=== PATIENT | male | born 1970 | race Caucasian/White ===

== ENCOUNTER 2018-09-04 17:33 | Emergency (ER) | payer MEDICAID ==
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
[2018-09-04 18:30] VITALS: BP 136/86
--- NOTE | 2018-09-04 19:16 | CRLCT ---
INDICATION: Dizziness, forgetful and palpitations. TECHNIQUE: CT head without contrast. COMPARISON: None. FINDINGS: CSF spaces: Within normal limits for age. Brain parenchyma: The gilbert-white differentiation is normal. No sign of mass, hemorrhage, or midline shift. Skull base and calvarium: The visualized paranasal sinuses and mastoid air cells demonstrate no acute or significant findings. The visualized orbits are grossly unremarkable. No skull fractures. IMPRESSION: Unremarkable noncontrast head CT. Please note that all CT scans at this facility use dose modulation, iterative reconstruction, and/or weight-based dosing when appropriate to reduce radiation dose to as low as reasonably achievable. Dictated by Sebastien Abdul MD @ Sep 04 2018 7:13PM Signed by Dr. Sebastien Abdul @ Sep 04 2018 7:15PM
--- NOTE | 2018-09-04 19:24 | CRLCR ---
Indication: Dyspnea Technique: Chest 2 views Comparison: None Findings: Cardiovascular and mediastinum: Heart size and vasculature are normal in caliber and appearance. Lungs and pleural spaces: No pleural effusion or pneumothorax. No focal consolidation. Mild bilateral bronchial wall thickening. Bones and soft tissues: No significant findings. Impression: Mild bilateral bronchial wall thickening which can be seen in bronchitis or reactive airways disease. Dictated by Sebastien Abdul MD @ Sep 04 2018 7:15PM Signed by Dr. Sebastien Abdul @ Sep 04 2018 7:23PM
== END 2018-09-04 19:40 | disposition home or self-care (01) ==
LOC: JP.ED 17:33
DX: F43.9 Reaction to severe stress, unspecified (principal); I10 Essential (primary) hypertension; E66.9 Obesity, unspecified; F17.210 Nicotine dependence, cigarettes, uncomplicated; Z98.890 Other specified postprocedural states; Z88.8 Allergy status to other drugs, medicaments and biological substances
CPT/HCPCS: 36415; 70450; 71046; 80053; 84443; 84484; 85025; 93005; 99284-25

== ENCOUNTER 2019-12-29 10:00 | Emergency (ER) | payer MEDICAID, OTHER ==
[2019-12-29 11:04] VITALS: BP 139/85; PULSE 82
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
[2019-12-29] MEDS ORDERED: cefTRIAXone 1 GM, Lidocaine 1% 2.1 ML IM ONE ×2 (13:31)
[2020-01-02 09:12] LABS: CHLAMYDIA TRACHOMATIS, NAA Negative (Negative); NEISSERIA GONORRHOEAE, NAA Negative (Negative)
== END 2019-12-29 13:57 | disposition home or self-care (01) ==
LOC: JP.ED 10:00
DX: R36.9 Urethral discharge, unspecified (principal); I10 Essential (primary) hypertension; E66.9 Obesity, unspecified; F17.210 Nicotine dependence, cigarettes, uncomplicated; Z68.32 Body mass index [BMI] 32.0-32.9, adult; Z88.8 Allergy status to other drugs, medicaments and biological substances
CPT/HCPCS: 87491; 87591; 96372; 99283; J0696; J2001

== ENCOUNTER 2020-05-11 13:19 | Emergency (ER) | payer MEDICAID ==
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
[2020-05-11 14:13] VITALS: BP 142/94; PULSE 105
== END 2020-05-11 14:01 | disposition home or self-care (01) ==
LOC: JP.ED 13:19
DX: R50.9 Fever, unspecified (principal); I10 Essential (primary) hypertension; E66.9 Obesity, unspecified; F17.210 Nicotine dependence, cigarettes, uncomplicated; Z68.33 Body mass index [BMI] 33.0-33.9, adult; Z20.828 Contact with and (suspected) exposure to other viral communicable diseases; Z88.8 Allergy status to other drugs, medicaments and biological substances
CPT/HCPCS: 99283; U0002

== ENCOUNTER 2022-02-13 11:05 | Emergency (ER) | payer MEDICAID ==
[2022-02-13 11:24] VITALS: BP 129/85; PULSE 74
[2022-02-13] MEDS ORDERED: Alum Hydrox/Mag Hydrox/Simeth 15 ML, Lidocaine 2% 15 ML PO ONE ×2 (11:28)
[2022-02-13] MEDS ORDERED: Famotidine 20 MG/2 ML SDV IVPUSH ONE (11:28)
[2022-02-13] MEDS ORDERED: Aspirin 81 MG Tab.Chew PO ONE (11:28)
[2022-02-13 11:55] LABS: ESTIMATED GFR 81 mL/min (>60); TROPONIN I HIGH SENSITIVITY 4.7 pg/mL (<=60.3)
[2022-02-13] MEDS ORDERED: Sucralfate Suspension 1 GM/10 ML Cup PO ONE (12:39)
== END 2022-02-13 15:17 | disposition home or self-care (01) ==
LOC: JP.ED 11:05
DX: R07.89 Other chest pain (principal); K21.9 Gastro-esophageal reflux disease without esophagitis; R06.02 Shortness of breath; E78.00 Pure hypercholesterolemia, unspecified; I10 Essential (primary) hypertension; E66.9 Obesity, unspecified; Z68.32 Body mass index [BMI] 32.0-32.9, adult; Z88.5 Allergy status to narcotic agent; Z20.822 Contact with and (suspected) exposure to COVID-19
CPT/HCPCS: 36415; 71045; 80053; 81001; 82150; 83690; 84443; 84484; 85025; 85379; 87635; 93005; 96374; 99285; A9270; J3490; U0002

== ENCOUNTER 2024-09-27 11:39 | Emergency (ER) | payer MEDICAID ==
[2024-09-27 11:56] LABS: BASOPHILS ABSOLUTE AUTO 0.06 K/uL (0.00-0.10); BASOPHILS PERCENT AUTO 0.6 % (0.1-1.3); EOSINOPHILS ABSOLUTE AUTO 0.21 K/uL (0.00-0.40); EOSINOPHILS PERCENT AUTO 2.1 % (0.0-5.4); HEMATOCRIT 49.8 % (38.4-49.7); HEMOGLOBIN 17.6 g/dL (12.9-16.9); IMMATURE GRAN ABSOLUTE AUTO 0.04 K/uL (0.00-0.23); IMMATURE GRAN PERCENT AUTO 0.4 % (0.0-0.7); LYMPHOCYTES ABSOLUTE AUTO 2.28 K/uL (0.8-3.3); LYMPHOCYTES PERCENT AUTO 22.5 % (11.4-47.7); MEAN CORPUSCULAR HEMOGLOBIN 31.2 pg (31.6-35.5); MEAN CORPUSCULAR HGB CONC 35.3 g/dL (31.6-35.5); MEAN CORPUSCULAR VOLUME 88.3 fL (81.4-99.0); MONOCYTES ABSOLUTE AUTO 0.81 K/uL (0.20-0.90); NEUTROPHILS ABSOLUTE AUTO 6.75 K/uL (1.0-7.6); NEUTROPHILS PERCENT AUTO 66.4 % (40.0-78.1); PLATELET COUNT,PLT 266 K/uL (130-375); RED BLOOD CELL COUNT 5.64 M/uL (4.14-5.76); WHITE BLOOD CELL COUNT,WBC 10.2 K/uL (3.2-11.0)
[2024-09-27] MEDS: Aspirin 81 MG Tab.Chew PO ONE (11:58)
[2024-09-27] MEDS: Nitroglycerin 0.4 MG Tab.SL SL PRN (12:00)
[2024-09-27 12:29] LABS: CALCIUM 9.4 mg/dL (8.5-10.1); CREATININE 1.1 mg/dL (0.8-1.3); EST CRCL DRUG DOSING (CG) 80.19 mL/min; TROPONIN I HIGH SENSITIVITY 4.5 pg/mL (<=60.3)
[2024-09-27 13:29] VITALS: BP 124/77; PULSE 63
== END 2024-09-27 14:56 | disposition home or self-care (01) ==
LOC: JP.ED 11:39
DX: R07.9 Chest pain, unspecified (principal); R42 Dizziness and giddiness; I10 Essential (primary) hypertension; E78.00 Pure hypercholesterolemia, unspecified; F17.210 Nicotine dependence, cigarettes, uncomplicated; Z88.8 Allergy status to other drugs, medicaments and biological substances; Z79.899 Other long term (current) drug therapy
CPT/HCPCS: 36415; 71046; 71046-26; 80048; 84484; 85025; 85730; 93005; 93010; 99284; 99285; A9270-GY